=== PATIENT | male | born 1955 | race Caucasian/White ===

== ENCOUNTER 2018-09-29 10:34 | Emergency (ER) | payer BC ==
[~2018-09-29] VITALS: Ht 177.8 cm; Wt 99.8 kg
[~2018-09-29 10:34] MED LIST: ATOR-1 PO; BUPR-120 PO; CILO100T21 PO; FOLI-43 PO; GLIP10TA11 PO; GLU500 PO; LISI-600 PO; METO25TA6 PO; OMEP40CA33 PO; PIOG45TA PO
[2018-09-29 10:50] VITALS: BP_SYST 144
[2018-09-29 12:02] LABS: BILIRUBIN,URINE NEGATIVE (NEGATIVE); BLOOD, URINE 3+ (NEGATIVE); CLARITY/URINE CLEAR (CLEAR); COLOR,URINE YELLOW (YELLOW); GLUCOSE,URINE 1+ (NEGATIVE); KETONES,URINE NEGATIVE (NEGATIVE); LEUKOCYTE ESTERASE ,URINE NEGATIVE (NEGATIVE); NITRITE, URINE NEGATIVE (NEGATIVE); PH,URINE 5.5 (5.0-8.0); PROTEIN URINE 1+ (NEGATIVE); UROBILINOGEN,URINE 0.2 (0.2-1.0)
[2018-09-29 12:13] LABS: HEMATOCRIT 48.6 % (36-54); HEMOGLOBIN 16.2 g/dL (14.0-18.0); MEAN CORPUSCULAR HEMOGLOBIN 29 pg (27-31); MEAN CORPUSCULAR VOLUME 87 fL (79.0-98.0); RED BLOOD CELL COUNT(AUTO) 5.57 MIL/uL (4.2-6.2); WHITE BLOOD COUNT (AUTO) 10.2 K/uL (4.8-10.8)
[2018-09-29 12:14] LABS: BASOPHILS % (AUTO) 1.2 % (0.0-2.0); EOSINOPHILS % (AUTO) 1.8 % (0.0-4.0); LYMPHOCYTES # (AUTO) 2.8 K/uL (1.0-5.5); LYMPHOCYTES % (AUTO) 27.3 % (20.5-51.5); MEAN CORPUSCULAR HGB CONC 34 % (32-36); MONOCYTES # (AUTO) 0.6 K/uL (0.0-1.0); MONOCYTES % (AUTO) 5.9 % (1.7-9.3); NEUTROPHILS # (AUTO) 6.5 K/uL (1.8-7.7); NEUTROPHILS % (AUTO) 63.8 % (40.0-70.0); PLATELET COUNT (AUTO) 233 K/uL (130-430); RED CELL DISTRIBUTION WIDTH 13.9 % (9.0-15.0)
[2018-09-29 12:15] LABS: BASOPHILS # (AUTO) 0.1 K/uL (0.0-0.2); EOSINOPHILS # (AUTO) 0.2 K/uL (0.0-0.4)
[2018-09-29 12:16] LABS: BACTERIA,URINE FEW /HPF (None Seen); MUCUS,URINE None Seen /LPF (None Seen); RBC,URINE 20-50 /HPF (0-3); WBC,URINE 0-3 /HPF (0-3); YEAST,URINE None Seen /HPF (None Seen)
[2018-09-29 12:31] LABS: CALCIUM 9.3 mg/dL (8.4-11.0); CREATININE 1.25 mg/dL (0.55-1.30); POTASSIUM 4.8 mmol/L (3.5-5.1); TOTAL BILIRUBIN 0.5 mg/dL (0.0-1.0)
[2018-09-29 12:32] LABS: ALBUMIN 4.1 g/dL (3.4-4.8)
[2018-09-29 13:13] LABS: PROTHROMBIN TIME 10.5 SECS (9.5-12.5)
[2018-09-29 14:10] VITALS: BP_SYST 144
== END 2018-09-29 14:10 | disposition home or self-care (01) ==
LOC: SED 10:34
DX: R31.9 Hematuria, unspecified (principal); L02.91 Cutaneous abscess, unspecified; E11.9 Type 2 diabetes mellitus without complications; I10 Essential (primary) hypertension; Z90.49 Acquired absence of other specified parts of digestive tract; Z86.79 Personal history of other diseases of the circulatory system; Z88.8 Allergy status to other drugs, medicaments and biological substances; Z79.899 Other long term (current) drug therapy
CPT/HCPCS: 36415; 76770; 80053; 81000-TC; 85025; 85610-TC; 99284

== ENCOUNTER 2021-06-19 22:53 | Emergency (ER) | payer BC, OTHER ==
[~2021-06-19] VITALS: Ht 180.3 cm; Wt 111.1 kg
[~2021-06-19 22:53] MED LIST changes: -LISI-600 PO; +LISI20TA30 PO; +OMEP40CA20 PO; -OMEP40CA33 PO
--- NOTE | 2021-06-19 23:51 | NUR ---
Patient to ER bed 2 to gown for evaluation. Side rails up.
[2021-06-19 23:53] VITALS: BP_SYST 118
--- NOTE | 2021-06-20 00:07 | NUR ---
Dr. Khan at bedside for pt eval
[2021-06-20] MEDS ORDERED: KETOROLAC TROMETHAMINE 60 MG/2 ML VIAL IM ONE (00:15)
--- NOTE | 2021-06-20 00:45 | NUR ---
Pt BIB family to ED C/O R shoulder pain, stating he was working on hitching his boat when he hurt his R shoulder. VSS no s/s of acute distress Resting on gurney rails up
--- NOTE | 2021-06-20 01:20 | NUR ---
Pt aware he is waiting for Radiology study of his R Shoulder
--- NOTE | 2021-06-20 02:28 | NUR ---
VSS no s/s of acute distress
[2021-06-20] MEDS ORDERED: IBUP-1969 PO (03:25)
--- NOTE | 2021-06-20 03:30 | NUR ---
Patient given written and verbal discharge instructions and verbalizes understanding. ER MD discussed with patient the results and treatment provided. Patient in stable condition. ID arm band removed. Rx of Ibuprofen given. Patient educated on pain management and to follow up with PMD. Pain Scale 0/10 Opportunity for questions provided and answered. Medication side effect fact sheet provided.
[2021-06-20 03:40] VITALS: BP_SYST 121
== END 2021-06-20 03:30 | disposition home or self-care (01) ==
LOC: SED 22:53
DX: M25.511 Pain in right shoulder (principal); I10 Essential (primary) hypertension; E11.9 Type 2 diabetes mellitus without complications; Z88.8 Allergy status to other drugs, medicaments and biological substances; Z79.899 Other long term (current) drug therapy; Z79.84 Long term (current) use of oral hypoglycemic drugs
CPT/HCPCS: 73030; 93971; 96372; 99284; J1885

== ENCOUNTER 2022-12-06 11:17 | Emergency (ER) | payer BC, OTHER ==
[~2022-12-06] VITALS: Ht 177.8 cm; Wt 107.5 kg
[~2022-12-06 11:17] MED LIST changes: +IBUP-1969 PO
[2022-12-06 11:33] VITALS: BP_SYST 128
[2022-12-06 12:05] LABS: BASOPHILS # (AUTO) 0.1 K/uL (0.0-0.2); BASOPHILS % (AUTO) 0.6 % (0.0-2.0); EOSINOPHILS # (AUTO) 0.2 K/uL (0.0-0.4); EOSINOPHILS % (AUTO) 2.2 % (0.0-4.0); HEMATOCRIT 45.6 % (36-54); HEMOGLOBIN 15.2 g/dL (14.0-18.0); LYMPHOCYTES # (AUTO) 2.3 K/uL (1.0-5.5); LYMPHOCYTES % (AUTO) 24.5 % (20.5-51.5); MEAN CORPUSCULAR HEMOGLOBIN 30 pg (27-31); MEAN CORPUSCULAR HGB CONC 33 % (32-36); MEAN CORPUSCULAR VOLUME 90 fL (79.0-98.0); MONOCYTES # (AUTO) 0.7 K/uL (0.0-1.0); MONOCYTES % (AUTO) 7.7 % (1.7-9.3); PLATELET COUNT (AUTO) 213 K/uL (130-430); RED CELL DISTRIBUTION WIDTH 15.3 % (9.0-15.0); WHITE BLOOD COUNT (AUTO) 9.3 K/uL (4.8-10.8)
[2022-12-06 12:24] LABS: ANION GAP 9 (5-15); CHLORIDE 102 mmol/L (98-107); CREATININE 1.18 mg/dL (0.55-1.30); GLUCOSE 103 mg/dL (70-99); UREA NITROGEN, BLOOD 18 mg/dL (8-21)
[2022-12-06 12:28] LABS: GFR AFRICAN AMERICAN 79 mL/min (>90)
[2022-12-06 12:29] LABS: ALANINE AMINOTRANSFERASE 27 U/L (12-78); ALBUMIN 3.8 g/dL (3.4-4.8); ASPARTATE AMINOTRANSFERASE < 5 U/L (10-37); C-REACTIVE PROTEIN QUANT < 0.2 mg/dL (0-0.5); TOTAL BILIRUBIN 0.5 mg/dL (0.0-1.0)
[2022-12-06 12:34] LABS: ACETONE, SERUM NEGATIVE (NEGATIVE)
--- NOTE | 2022-12-06 13:00 | NUR ---
ER at bedside examining patient.
[2022-12-06] MEDS ORDERED: CLIN-22 PO (13:41)
--- NOTE | 2022-12-06 14:00 | NUR ---
Pt C/O right eye swelling/ redness Hx of cataract AOX4 VSS Able to make needs known Will continue to monitor
[2022-12-06 14:10] VITALS: BP_SYST 136
--- NOTE | 2022-12-06 14:13 | NUR ---
Patient given written and verbal discharge instructions and verbalizes understanding. ER MD discussed with patient the results and treatment provided. Patient in stable condition. ID arm band removed. IV catheter removed intact and dressing applied, no active bleeding. Rx of Clindamycin given. Patient educated on pain management and to follow up with PMD. Opportunity for questions provided and answered. Medication side effect fact sheet provided.
== END 2022-12-06 14:11 | disposition home or self-care (01) ==
LOC: SED 11:17
DX: H05.011 Cellulitis of right orbit (principal); E11.9 Type 2 diabetes mellitus without complications; I10 Essential (primary) hypertension; Z88.8 Allergy status to other drugs, medicaments and biological substances; Z79.899 Other long term (current) drug therapy
CPT/HCPCS: 36415; 80053; 82009; 83605; 85025; 86140; 99283